=== PATIENT | male | born 1925 | race Caucasian/White ===

== ENCOUNTER 2016-06-13 13:06 | Emergency (ER) | payer MEDICARE, BC ==
[~2016-06-13] VITALS: Ht 172.7 cm; Wt 54.0 kg
[2016-06-13] MEDS ORDERED: methylPREDNISolone SOD SUCC 125 MG/2 ML ONE (13:25)
[2016-06-13] MEDS ORDERED: SODIUM CHLORIDE FLUSH 10ML SYR IVF ONE (13:30)
[2016-06-13] MEDS ORDERED: SODIUM CHLORIDE 0.9% 1,000ML IVBOLUS ONE (13:30)
[2016-06-13] MEDS ORDERED: methylPREDNISolone SOD SUCC 125 MG/2 ML IVP ONE (13:30)
[2016-06-13 13:50] LABS: ASPARTATE AMINO TRANSFERASE 14 U/L (15-37); BLOOD UREA NITROGEN 34 mg/dL (7-18)
[2016-06-13 14:00] LABS: IS PT STATUS REG ER OR PRE ER? YES
[2016-06-13] MEDS ORDERED: SODIUM CHLORIDE 0.9%, 500ML IVBOLUS ONE (14:30)
[2016-06-13 16:21] VITALS: BP 122/84
== END 2016-06-13 16:23 | disposition home or self-care (01) ==
LOC: ED 13:46
DX: J44.1 Chronic obstructive pulmonary disease with (acute) exacerbation (principal); E86.0 Dehydration
CPT/HCPCS: 36415; 71010; 80053; 84484; 85025; 85610; 85730; 93005; 96361; 96374; 99285; J2930; J7030; J7040